=== PATIENT | female | born 1965 | race African-American/Black ===

== ENCOUNTER 2016-08-09 15:00 | Emergency (ER) | payer MEDICAID, OTHER ==
[~2016-08-09] VITALS: Ht 165.1 cm; Wt 106.8 kg
[~2016-08-09 15:00] MED LIST: ALPR0.5T8 PO; AMLO2.5T PO; AMPH20TA5 PO; ASPI-973 PO; ATOR20TA PO; CARV6.25 PO; CHOL200047 PO; CLOP75TA3 PO; DEXT20TA8 PO; GABA-502 PO; HYDR-3090 PO; HYDR-4003 PO; LEVO175T2 PO; LORA10CA PO; LOSA25TA21 PO; NITR0.4T SL; OMEP40CA36 PO; OXCA300T2 PO; PROZ20 PO; SPIR100T3 PO
[2016-08-09 15:13] VITALS: BP 127/85; PULSE 60; RESP 18; O2SAT 99
--- NOTE | 2016-08-09 15:37 | ED.REPORT ---
HPI-Chest Pain 40 and Over Date of Service Aug 09, 2016 ED Provider: Jim Perez MD Pt is a 51 year old female with a hx of a pacemaker, OK x3, HTN, CAD and hyperlipidemia presenting to the ED via EMS complaining of cramping left peristernal chest pain onset at 1345 lasting for about 30 minutes. CP starts left peristernal radiating out, with left arm numbness. Associated symptoms include left neck tightness. Denies SOB, fever or cough. Pt states that the pain begins right at the site of one of the pacemaker leads, and that she took 2 nitro and ASA with some relief. The chest pain is almost resolved, currently at about 07/21. Pt had a field EKG showing sinus rhythm with a rate of 70. No acute changes. She reports that this is her 4th time in the ER with this type of chest pain. She had 2 episodes before her pacemaker insertion in February, then another in April. Pt was in the catheter lab 06/[address] 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 Current medications include Plavix , amlodipine 3mg, Coreg-carvedilol 3.125mg. Nursing Notes Stated Complaint: CHEST PAIN Chief Complaint: Chest Pain Nursing Notes Reviewed: Yes Allergies: Coded Allergies: Penicillins (Verified Allergy, Severe, 06/19/16) fluticasone (Verified Allergy, Severe, "everything swelled up/throat scratchy", 06/19/16) meperidine HCl (Verified Allergy, Severe, 06/19/16) Uncoded Allergies: Surgical glue (Allergy, Severe, Rash, 06/19/16) Scheduled Amlodipine (Amlodipine) 2.5 Mg Tablet 2.5 MG PO DAILY Amlodipine (Amlodipine) 10 Mg Tablet 10 MG PO DAILY Amphet Asp/Amphet/D-Amphet (Adderall) 20 Mg Tablet 20 MG PO DAILY Aspirin (Aspirin) 81 Mg Tablet 81 MG PO DAILY Atorvastatin (Lipitor) 20 Mg Tablet 20 MG PO DAILY Carvedilol (Coreg) 6.25 Mg Tablet 3.125 MG PO BID Carvedilol (Carvedilol) 6.25 Mg Tablet 6.25 MG PO BID Cholecalciferol (Vitamin D3) (Vitamin D3) 2,000 Unit Capsule 2,000 UNIT PO DAILY Clopidogrel Bisulfate (Plavix) 75 Mg Tablet 75 MG PO DAILY Dextroamphetamine/Amphetamine (Amphetamine Mixed Salts) 20 Mg Tablet 40 MG PO QAM Fluoxetine (Prozac) 20 Mg Capsule 60 MG PO HS Gabapentin (Gabapentin) 300 Mg Capsule 300 MG PO QAM Gabapentin (Gabapentin) 300 Mg Capsule 900 MG PO HS Isosorbide MN ER (Isosorbide MN ER) 30 Mg Tab.er.24h 30 MG PO DAILY Levothyroxine (Synthroid) 175 Mcg Tablet 175 MCG PO DAILY Losartan Potassium (Losartan Potassium) 25 Mg Tablet 25 MG PO DAILY Omeprazole (Omeprazole) 40 Mg Capsule.dr 40 MG PO BID Oxcarbazepine (Oxcarbazepine) 300 Mg Tablet 600 MG PO BID Spironolactone (Spironolactone) 100 Mg Tablet 100 MG PO DAILY Scheduled PRN Alprazolam (Alprazolam) 0.5 Mg Tablet 0.5 MG PO TID PRN PRN For Anxiety Hydrocodone-Acetaminophen 5-300 mg (Hydrocodone-Acetaminophen 5-300 mg) 1 Each Tablet 1 TABLET PO Q4H PRN PRN For Pain Loratadine (Claritin) 10 Mg Capsule 10 MG PO DAILY PRN PRN allergies Nitroglycerin SL (Nitrostat) 0.4 Mg Tab.subl 0.4 MG SL Q5MIN PRN PRN For Chest Pain Miscellaneous Medications Hydrocodone-Acetaminophen 5-325 mg (Hydrocodone-Acetaminophen 5-325 mg) 1 Each Tablet 1 TABLET PO General Time Seen by MD: 15:30 Chief Complaint Chest pain Hx Obtained From: Patient, EMS Arrived By: Ambulance Sudden in Onset?: Yes Onset Occurred: 1 - 4 hours ago Symptom Duration: Since onset Location: : Chest left Quality: Cramping, Painful Radiation: : Neck: Shoulder left Severity: Current: Pain level 1 out of 10 Severity: Maximum: Moderate Recent Healthcare: No recent doctor visit, No recent hospitalization Similar Sx Previous: Yes Risk Factors )( CAD Risk Stratification Hyperlipidemia Hypertension Known CAD Risk factors reviewed Past Medical History 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 Birch. 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 Past Medical History Pacemaker Acute anterior OK (STEMI 2011) Hypertension Adrenal tumor - history of pheochromocytoma History of hepatitis/hypothyroidism History of peptic ulcer disease History renal insufficiency History of seizure disorder Tachy-viktor syndrome Reports: Hyperlipidemia Past Surgical History Removal of renal glands resection for pheochromocytoma and primary hyperaldosteronism Cardiac stents LA, LCx, and RCA Reports: Hysterectomy Family History Noncontributory Smoking History Former Smoker Social History Alcohol Use: Denies alcohol use Other Social History: Good social support, , Local resident Ambulatory Status Independent Review of Systems Constitutional: Denies: Fever Respiratory: Denies: Non-productive cough, Shortness of breath Cardiovascular: Reports: Chest pain Musculoskeletal: Reports: Neck pain Neurologic: Reports: Numbness Complete sys rev & neg: except as marked. Physical Exam Initial Vital Signs Vital Signs (First) Date Time Temp Pulse Resp B/P Pulse Ox O2 Delivery O2 Flow Rate FiO2 08/09/16 15:13 36.8 60 18 127/85 99 Room Air Initial VS: Reviewed Head / Eyes: Atraumatic, Normocephalic, PERRL ENT: Mucous membranes moist, Conjunctiva normal, No scleral icterus Neck: Supple, Non-tender, Full range of motion Extremities: Vascular intact, Neuro intact, No swelling, No tenderness Skin: Warm, Dry, No cyanosis Neurologic: Alert, Oriented, Nonfocal Psychiatric: Mood/affect normal, Behavior normal, Normal thought content General/Constitutional: Awake, Alert, No acute distress, Well appearing Respiratory / Chest: Breath sounds NL, Breath sounds = bilat, No respiratory distress, No rales, No rhonchi, No wheezing, No stridor Cardiovascular: Heart rate NL, Regular rhythm, Heart sounds NL, No gallop, No murmurs, No rubs Interpretation & Diagnostics Lab Results Interpretation Result Diagram: 08/09/16 1540 08/09/16 1540 Test 08/09/16 15:40 08/09/16 15:46 08/09/16 18:56 White Blood Count 3.5th/mm3 (3.8-10.1) Red Blood Count 5.16mil/mm3 (3.90-5.20) Hemoglobin 13.7g/dL (12.0-15.6) Hematocrit 41.6% (35.0-46.0) Mean Corpuscular Volume 80.6fL (81-100) Mean Corpuscular Hemoglobin 26.6pg (27.0-35.0) Mean Corpuscular Hemoglobin Concent 32.9% (32.0-37.0) Red Cell Distribution Width 13.4% (12.3-15.4) Platelet Count 236bil/L (150-400) Neutrophils (%) (Auto) 46.1% (40-74) Lymphocytes (%) (Auto) 38.7% (14-46) Monocytes (%) (Auto) 12.0% (4-12) Eosinophils (%) (Auto) 2.0% (0-5) Basophils (%) (Auto) 0.9% (0-3) Sodium Level 135mEq/L (134-144) Potassium Level 4.3mEq/L (3.5-5.2) Chloride Level 99mEq/L (97-108) Carbon Dioxide Level 25mmol/L (18-29) Blood Urea Nitrogen 13mg/dL (6-24) Creatinine 1.08mg/dL (0.57-1.00) Estimat Glomerular Filtration Rate 69mL/min (>59) Glucose Level 119mg/dL (60-99) Calcium Level 9.2mg/dL (8.5-10.1) Magnesium Level 1.8mg/dL (1.6-2.6) Total Bilirubin 0.2mg/dL (0.0-1.2) Aspartate Amino Transf (AST/SGOT) 29U/L (0-50) Alanine Aminotransferase (ALT/SGPT) 29U/L (0-32) Alkaline Phosphatase 78U/L (25-150) Total Protein 7.1g/dL (6.4-8.4) Albumin 3.7g/dL (3.4-5.0) Hold Muñoz Top Tube Received (Received) Troponin T < 0.010ug/L (0.0-0.011) ECG Interpretation ECG Interpretation: No acute ST segment changes. Probable anteroseptal infarct and inferior infarct. Time: 15:34 Interpreted by: ED physician Normal ECG Interpretation: Normal rate (60), Normal sinus rhythm X-Ray Chest Interpretation Chest Xray Interpretation: IMPRESSION: Mild right basilar pneumonia. Follow up plain films of the chest are recommended to ensure resolution, and to exclude underlying or central malignancy. Dictated by: Aicha Enrique M.D. on 08/09/2016 at 15:42 View: Portable, 1 view Interpretation / Wet Read by: Interpret - Radiologist Re-Eval/Medical Decision Med Decision/Clinical Course 21-year-old female with symptoms suspicious for angina, she has known coronary disease with a recent cardiac catheterization demonstrating nonobstructive lesions. ECG is unchanged from baseline, troponins are negative 2. Medications are to be adjusted with an increase in beta evangelina, amlodipine and the addition of long-acting nitrate. This was after consultation with cardiology. Patient was discharged home to follow up with cardiology outpatient. Time of Eval: 16:43 Patient Status: Condition improved Re-Evaluation/Progress Note: Chest pain is now resolved. Discussed chest x ray and lab results. Time of Eval: 16:50 Patient Status: Condition improved Re-Evaluation/Progress Note: Discussed consultation with Dr. Kim. Time of Eval: 20:28 Patient Status: Condition improved Re-Evaluation/Progress Note: Discussed adjusted medication list and plan for discharge. Consultation : Referral / Consult Name: Montrell Kim MD Consulted With: Cardiology Call Returned at: 16:46 Note: Recommends a repeat Troponin and then discharge. Counseled Regarding: Diagnosis, Lab results, Need for follow-up, When/why to return to ED Discharge & Departure Primary Impression: Chest pain Chest pain type: precordial chest pain Qualified Code: R07.2 - Precordial pain Disposition: Home Discharge Condition All VS Reviewed: Yes Condition: Improved Additional Instructions: Emergency room evaluation today included interview, examination, EKG, and laboratory work. Past records were reviewed in case was discussed with cardiology. Based on recent cardiac catheterization and 2 negative tests for heart muscle damage, it is felt safe to discharge you home. We have made medication changes as follows. First increased carvedilol from 3.1252 6.25 mg twice daily. Second increased amlodipine from 5 mg to 10 mg daily. Third add imdur 30mg daily . 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 Return to the ER if you develop any new or worsening symptoms. With your adjusted medication list, be careful when going from sitting to standing up. You can use nitro every 5 minutes if you have chest pain, if you need to take more than 2 call 911. If you develop cough or fevers see your doctor or visit the ED immediately. Referrals: LAWRENCE ABDUL PA-C (PCP) Jefferson Marte MD, Yelena K MD Scribe Attestation Portions of this note were transcribed by Ana Santiago. I, Dr. Perez personally performed the history, physical exam and medical decision-making; I reviewed and confirmed the accuracy of the information in the transcribed note. Signed by : Denisse Saleh, 08/09/2015 and 2044. copies to: LAWRENCE ABDUL PA-C; Jefferson Marte MD; Wendi Birch MD, Donald L MD Aug 09, 2016 15:37 ANA SANTIAGO Aug 09, 2016 15:58
--- NOTE | 2016-08-09 15:44 | DRSVH ---
PROCEDURE: X-RAY CHEST ONE VIEW, PORTABLE ([id number]) INDICATIONS: chest pain TECHNIQUE: One view of the chest was acquired. COMPARISON: [facility], CR, XR CHEST 2VW, 03/03/2016, 6:39. FINDINGS: Surgical changes and devices: Left-sided pacer. Lungs and pleura: No pleural effusions or pneumothorax. Mild right basilar pneumonia. Mediastinum: Mediastinal contours appear normal. Heart size is normal. Bones and chest wall: No suspicious bony lesions. Overlying soft tissues appear unremarkable. IMPRESSION: Mild right basilar pneumonia. Follow up plain films of the chest are recommended to ensur e resolution, and to exclude underlying or central malignancy. Dictated by: Aicha Enrique M.D. on 08/09/2016 at 15:42 Approved by: Aicha Enrique M.D. on 08/09/2016 at 15:43
[2016-08-09 15:51] LABS: BASOPHILS % (AUTO) 0.9 % (0-3); Mean Corpuscular Hemoglobin 26.6 pg (27.0-35.0); Mean Corpuscular Volume 80.6 fL (81-100); NEUTROPHILS % (AUTO) 46.1 % (40-74); Platelet Count 236 bil/L (150-400)
[2016-08-09] MEDS ORDERED: Nitroglycerin 2% 1 Gm Ointment TOPICAL SCH (16:00)
[2016-08-09 16:08] VITALS: BP 120/78; PULSE 60; RESP 17; O2SAT 100
[2016-08-09 16:28] LABS: Magnesium 1.8 mg/dL (1.6-2.6)
[2016-08-09 16:30] LABS: TROPONIN T < 0.010 ug/L (0.0-0.011)
[2016-08-09] MEDS ORDERED: Isosorbide Mononitrate 30 mg ER24 Tablet PO ONE (16:55)
[2016-08-09 18:05] VITALS: BP 117/78; PULSE 77; RESP 18; O2SAT 98
[2016-08-09] MEDS ORDERED: CARV6.252 PO (20:38)
[2016-08-09] MEDS ORDERED: ISOS30TA4 PO (20:38)
[2016-08-09] MEDS ORDERED: AMLO10TA3 PO (20:38)
[2016-08-09 21:03] VITALS: BP 105/70; PULSE 70; RESP 18; O2SAT 99
== END 2016-08-09 21:05 | disposition home or self-care (01) ==
LOC: SED 15:00
DX: R07.2 Precordial pain (principal); I25.2 Old myocardial infarction; I10 Essential (primary) hypertension; I25.10 Atherosclerotic heart disease of native coronary artery without angina pectoris; E78.5 Hyperlipidemia, unspecified; Z95.0 Presence of cardiac pacemaker; Z95.818 Presence of other cardiac implants and grafts; Z87.891 Personal history of nicotine dependence; Z79.02 Long term (current) use of antithrombotics/antiplatelets; Z79.82 Long term (current) use of aspirin; Z88.0 Allergy status to penicillin; Z88.8 Allergy status to other drugs, medicaments and biological substances; Z88.5 Allergy status to narcotic agent